=== PATIENT | female | born 1960 | race African-American/Black ===

== ENCOUNTER 2018-12-19 12:12 | Emergency (ER) | payer MEDICARE, MEDICAID ==
[~2018-12-19] VITALS: Ht 157.5 cm; Wt 95.3 kg
[2018-12-19 13:20] LABS: Basophils # (auto) 0 uL; Basophils % (auto) 0.2 % (0.0-2.0); Eosinophils # (auto) 0 uL; Hematocrit 35.9 % (36.0-46.0); Hemoglobin 11.7 g/dL (12.2-16.2); Lymphocytes # (auto) 0.9 uL; Lymphocytes % (auto) 11.7 % (10.0-50.0); Mean Corpuscular Hemoglobin 30.2 pg (28.0-32.0); Mean Corpuscular Hgb Conc. 32.7 g/dL (32.0-36.0); Mean Corpuscular Volume 92.2 fL (80.0-100.0); Monocytes # (auto) 0.4 uL; Monocytes % (auto) 5.2 % (0.0-12.0); Neutrophils # (auto) 6.2 uL; Neutrophils % (auto) 82.9 % (37.0-80.0); Platelet Count (auto) 261 10^3/uL (140-450); Red Blood Cells 3.89 10^6/uL (4.0-5.20); Red Cell Distribution Width 16.4 % (11.8-14.3); White Blood Cell 7.5 10^3/uL (4.4-10.8)
[2018-12-19 13:39] LABS: Albumin 3.7 g/dL (3.4-5.0); Anion Gap 10 (5-15); Blood Urea Nitrogen 14 mg/dL (7-18); Calcium 8.5 mg/dL (8.5-10.1); Carbon Dioxide 26 mmol/L (21-32); Chloride 106 mmol/L (98-107); Glucose 177 mg/dL (74-106); Potassium 3.6 mmol/L (3.5-5.1); Sodium 142 mmol/L (136-145)
[2018-12-19 13:45] LABS: Alanine Aminotransferase 31 U/L (13-56); Alkaline Phosphatase 64 U/L (45-117); Aspartate Aminotransferase 16 U/L (15-37); Bilirubin, Total 0.3 mg/dL (0.2-1.0); GFR African American 73 mL/min; GFR Non-African American 60 mL/min; Total Protein 7.2 g/dL (6.4-8.2)
[2018-12-19 15:42] VITALS: BP 136/78
[2018-12-19] MEDS ORDERED: IPRATROPIUM BROM 0.5 MG/2.5ML INH SOL NEB ONE (16:00)
[2018-12-19] MEDS ORDERED: methylPREDNISolone SOD SUCC 125 MG/2 ML VL IM ONE (16:00)
[2018-12-19] MEDS ORDERED: ALBUTEROL SULF 2.5 MG/0.5ML(0.5%) NEB SOLN NEB ONE (16:00)
== END 2018-12-19 16:25 | disposition home or self-care (01) ==
LOC: ER 12:12
DX: J45.909 Unspecified asthma, uncomplicated (principal); J04.0 Acute laryngitis
CPT/HCPCS: 36415; 71046; 80053; 84484; 85025; 93005; 94640; 96372; 99284; J2930; J7611; J7644

== ENCOUNTER 2021-01-23 13:21 | Emergency (ER) | payer MEDICARE, MEDICAID ==
[~2021-01-23] VITALS: Ht 165.1 cm; Wt 90.7 kg
[2021-01-23 13:21] VITALS: BP 0/0
[2021-01-23] MEDS ORDERED: SODIUM BICARBONATE 8.4% INJ 50ML SYRINGE IV ONE (13:22)
[2021-01-23] MEDS ORDERED: DEXTROSE (50%) 50ML SYRG IV ONE (13:22)
[2021-01-23] MEDS ORDERED: EPINEPHrine HCL 1 MG/10 ML SYRG IV ONE (13:22)
== END 2021-01-23 13:31 ==
LOC: ER 13:21 → EDBD 13:21 → ER 13:31
DX: I46.9 Cardiac arrest, cause unspecified (principal); J96.90 Respiratory failure, unspecified, unspecified whether with hypoxia or hypercapnia; J45.909 Unspecified asthma, uncomplicated
CPT/HCPCS: 31500; 92950; 99285; J0171; J7042